=== PATIENT | female | born 1950 | race Caucasian/White ===

== ENCOUNTER → 2018-05-02 | Outpatient (CLI) | payer MEDICARE, BC | LOC: M.CT 10:55 | DX: K57.30 Diverticulosis of large intestine without perforation or abscess without bleeding (principal) ==

== ENCOUNTER 2018-07-03 15:30 | Emergency (ER) | payer MEDICARE, BC ==
[~2018-07-03] VITALS: Ht 177.8 cm; Wt 55.8 kg
[2018-07-03 15:42] VITALS: BP 130/72
[2018-07-03] MEDS ORDERED: AZASAN100 MG (15:49)
[2018-07-03] MEDS ORDERED: SYNTHROID125 MC1 PO (15:49)
[2018-07-03] MEDS ORDERED: AMLOD/BENAZEPRIL (15:50)
[2018-07-03] MEDS ORDERED: HYDROXYCHLOR (15:50)
[2018-07-03] MEDS ORDERED: RESTASIS1 EACH OPHTHALMIC (15:50)
[2018-07-03] MEDS ORDERED: PROBIOTIC1 EAC1 PO (15:53)
[2018-07-03] MEDS ORDERED: REFRESH CELLUVI1 APP OPHTHALMIC (15:53)
[2018-07-03] MEDS ORDERED: ASPIR 8181 MG PO (15:53)
[2018-07-03] MEDS ORDERED: VITAMIN B12 (15:54)
[2018-07-03] MEDS ORDERED: PREDNISONE 10 M10 MG PO (16:20)
[2018-07-03] MEDS ORDERED: CEFUROXIME250 MG PO (16:20)
== END 2018-07-03 16:26 | disposition home or self-care (01) ==
LOC: M.ERS 15:30
DX: J20.9 Acute bronchitis, unspecified (principal); J32.0 Chronic maxillary sinusitis; I10 Essential (primary) hypertension; K58.9 Irritable bowel syndrome, unspecified; M32.9 Systemic lupus erythematosus, unspecified; E03.9 Hypothyroidism, unspecified; Z88.2 Allergy status to sulfonamides; Z88.5 Allergy status to narcotic agent

== ENCOUNTER 2019-01-14 11:21 | Inpatient (IN) | payer MEDICARE, BC ==
[~2019-01-14] VITALS: Ht 177.8 cm; Wt 53.6 kg
--- NOTE | ~2019-01-14 | CON ---
[address] [address] CONSULTATION Name: MICKY GRANT Room: [address] IN .R.#: [id number] Admission: 01/14/19 Attend Phys: Cheng Lopez DO Discharge: Date of : 48 Report #: [id number] THIS REPORT FOR: //name// CC: Coleman Orellana DICTATED BY: Ana Lilia Andrade [facility] DATE OF SERVICE: 01/16/2019 Please note at the time of this dictation, the patient was seen and physically examined by myself. REASON FOR CONSULTATION: GI bleed. HISTORY OF PRESENT ILLNESS: This is a 69-year-old female, who presented to the Emergency Room with having bright red blood that she had noticed for a couple of days prior to her admission on Wednesday. She has not had any further bleeding because she has not had further bowel movement since she has been here. 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 She did undergo a colonoscopy recently in 2017 or 2016 that she had a polyp or tubular adenoma at that time. She is also complaining of some dysphagia at this time. She states it has been intermittent, but seems to be getting worse with solid foods. She denies any issues with any acid reflux that she is aware of at this time. She denies any NSAID use and does not take any blood thinners at this time. ALLERGIES: SULFA, MORPHINE, METRONIDAZOLE. MEDICATIONS: From home include Synthroid, Restasis, Refresh, aspirin, probiotic, Zoloft, azathioprine, ursodiol, vitamin D2, amlodipine, vitamin B12. PAST MEDICAL HISTORY: Hypertension, lupus, hypothyroidism. PAST SURGICAL HISTORY: She has got a stent in her femoral artery, carotid endarterectomy, she has had history of gastrointestinal bleed with a clip placed, hysterectomy, bladder lift and carotid endarterectomy on the left. FAMILY HISTORY: Mother, colon cancer. SOCIAL HISTORY: She is . Denies any alcohol, tobacco [place] [address] CONSULTATION Name: JUANITA,MICKY Smith Room: [address]#: [id number] Admission: 01/14/19 Attend Phys: Cheng Lopez DO Discharge: Date of : 48 Report #: [id number] REVIEW OF SYSTEMS: Twelve-point review of systems is essentially negative except for what is mentioned in the HPI. PHYSICAL EXAMINATION: VITAL SIGNS: Temperature 36.4, pulse 75, respirations 16, blood pressure 149/61. HEART: Regular rate and rhythm. LUNGS: Clear. ABDOMEN: Soft, positive bowel sounds in all 4 quadrants, with no masses or tenderness noted. LABORATORY DATA: Hemoglobin on admission was 11.6, she is down to 10.5; white count is 5; platelets 325. GFR is 122. CT of the abdomen and pelvis shows unremarkable CT with moderate stool noted in the colon and numerous diverticula noted throughout the colon as well, otherwise negative. IMPRESSION: 1. Gastrointestinal bleed. 2. Anemia. 3. Dysphagia. 4. History of gastrointestinal bleed and diverticulitis in the past. 5. Family history of colon cancer in mother. PLAN: 1. EGD and colonoscopy tomorrow with Dr. Fajardo. 2. Further recommendations to be made once the procedure has been performed. Thank you for allowing us to participate in this patient's care. Please do not hesitate to call with any questions in regard to this consult. By: [id number] Johnson MD /nt
--- NOTE | ~2019-01-14 | PROC ---
[address] [place] [address] PROCEDURE REPORT Name: MICKY GRANT Room: [address] IN .R.#: [id number] Admission: 01/14/19 Attend Phys: Cheng Lopez DO Discharge: Date of : 48 Report #: [id number] THIS REPORT FOR: //name// For GI report, please see the Provation report in Perceptive 7 content. By: [id number] Records Staff BERNARDA /AMMY
[~2019-01-14 11:21] MED LIST: AMLOD/BENAZEPRIL; ASPIR 8181 MG PO; AZASAN100 MG; CEFUROXIME250 MG PO; HYDROXYCHLOR PO; PREDNISONE 10 M10 MG PO; PROBIOTIC1 EAC1 PO; REFRESH CELLUVI1 APP OPHTHALMIC; RESTASIS1 EACH OPHTHALMIC; SYNTHROID125 MC1 PO; VITAMIN B12 IM
[2019-01-14 11:26] VITALS: BP 119/59
[2019-01-14] MEDS ORDERED: ACTIGALL300 MG PO (11:35)
[2019-01-14] MEDS ORDERED: ZOLOFT50 MG PO (11:37)
[2019-01-14] MEDS ORDERED: VIT D2 PO (11:37)
[2019-01-14 11:59] LABS: ABSOLUTE EOSINOPHILS 0.1 thou/uL (0.0-0.7); ABSOLUTE MONOCYTES 0.6 thou/uL (0.0-1.2); ABSOLUTE NEUTROPHILS 3.9 thou/uL (1.6-8.1); BASOPHILS 0.7 %; EOSINOPHILS 2.6 %; HEMOGLOBIN 11.6 gm/dL (12.0-15.0); LYMPHOCYTES 18.2 %; MCH 30.4 pg (26.0-34.0); MCV 89.4 fL (80.0-100.0); MONOCYTES 10.7 %; NUCLEATED RBCS 0 /100WBC; PLATELET COUNT* 361 thou/uL (150-400); POLYS 67.8 %; RBC 3.81 mil/uL (4.20-5.00); WBC 5.7 thou/uL (4.0-11.0)
[2019-01-14 12:07] LABS: APTT 27.5 Seconds (25.0-31.3); CALCIUM 9.1 mg/dL (8.5-10.1); CREATININE 0.6 mg/dL (0.6-1.3); POTASSIUM 4.7 mmol/L (3.5-5.1); PROTIME 10.1 Seconds (9.20-11.50)
[2019-01-14 12:12] LABS: ALBUMIN 3.6 g/dL (3.4-5.0); TOTAL BILIRUBIN 0.2 mg/dL (<0.1-1.0); TOTAL PROTEIN 7.4 g/dL (6.4-8.2)
[2019-01-14 13:13] LABS: URINE BILIRUBIN NEGATIVE (Negative); URINE BLOOD NEGATIVE (Negative); URINE CLARITY CLEAR; URINE COLOR YELLOW; URINE GLUCOSE-RANDOM NEGATIVE (Negative); URINE KETONES NEGATIVE (Negative); URINE LEUKOCYTES-REFLEX NEGATIVE (Negative); URINE NITRITE-REFLEX NEGATIVE (Negative); URINE PROTEIN NEGATIVE (Negative); URINE SPECIFIC GRAVITY <= 1.005 (1.005-1.030); URINE UROBILINOGEN 0.2 E.U./dl (0.2-1.0)
[2019-01-14] MEDS ORDERED: AMLODIPINE-BEN1 EAC2 PO (14:01)
[2019-01-14 14:45] VITALS: BP 117/80
--- NOTE | 2019-01-14 18:39 | NUR ---
VSS, ASSUMED CARE FROM ER, PT IS A&O4 AND UP AD ANDREW AND DENIES ANY PAIN, SHE IS TRACING SR ON THE MONITOR, PT GET ST WHEN UP WALKING, PT GAOL IS TO MEET WITH GI FOR BLOOD IN STOOL, WILL FOLLOW WITH PLAN OF CARE AND HOURLY ROUNDS
[2019-01-14 20:20] VITALS: BP 146/63
[2019-01-15 00:19] VITALS: BP 160/60
[2019-01-15 03:53] LABS: HEMATOCRIT 30.6 % (37.0-47.0); HEMOGLOBIN 10.4 gm/dL (12.0-15.0); MCH 30.3 pg (26.0-34.0); MCHC 33.9 g/dL (28.0-37.0); MCV 89.4 fL (80.0-100.0); RBC 3.42 mil/uL (4.20-5.00); WBC 3.6 thou/uL (4.0-11.0)
[2019-01-15 04:00] LABS: CALCIUM 8.6 mg/dL (8.5-10.1); CREATININE 0.4 mg/dL (0.6-1.3); POTASSIUM 4.2 mmol/L (3.5-5.1)
[2019-01-15 04:03] VITALS: BP 131/61
--- NOTE | 2019-01-15 05:32 | NUR ---
PT SLEPT MOST OF SHIFT. ASSESSMENT DOCUMENTED. MEDS GIVEN PER E-MAR. IV PATENT. FLUIDS INFUSING. NO REPORTS OF PAIN OR NAUSEA. PT TOLERATING CLEAR LIQUIDS TODAY. TELE MONITOR READING SR THIS SHIFT. WILL CONTINUE WITH PLAN OF CARE.
[2019-01-15 08:00] VITALS: BP 132/59
[2019-01-15 12:05] VITALS: BP 133/57
--- NOTE | 2019-01-15 12:22 | NUR ---
VSS, ASSUMED CARE IN THE AM, ASSESSMENT PERFORMED AND CHARTED, FALL PRECAUTIONS IN PLACE AND CALL LIGHT IN REACH, PT IS A&O4 AND ON RA, TRACING SR ON THE MONITOR BUT BECOMES TACHY WHEN UP MOVING, PT GOAL IS TO SIT UP IN CHAIR AND HAVE NO BLOOD IN STOOL, PT STTAES SHE HAS A HEADACH, PAIN MEDS GIVEN AND I WILL FOLLOW WITH PLAN OF CARE AND HOURLY ROUNDS,
[2019-01-15 16:27] VITALS: BP 133/47
[2019-01-15 20:15] VITALS: BP 151/76
[2019-01-16] VITALS: BP 133/64
[2019-01-16 04:00] VITALS: BP 149/61
[2019-01-16 05:02] LABS: HEMATOCRIT 31.3 % (37.0-47.0); HEMOGLOBIN 10.5 gm/dL (12.0-15.0); MCH 30.1 pg (26.0-34.0); MCHC 33.6 g/dL (28.0-37.0); MCV 89.7 fL (80.0-100.0); MPV 8.2 fl. (7.2-11.1); RBC 3.49 mil/uL (4.20-5.00); RDW-CV 13.6 % (10.5-14.5)
[2019-01-16 05:12] LABS: CALCIUM 9.1 mg/dL (8.5-10.1); CREATININE 0.5 mg/dL (0.6-1.3); POTASSIUM 4.2 mmol/L (3.5-5.1)
--- NOTE | 2019-01-16 06:54 | NUR ---
PT SLEPT MOST OF SHIFT. ASSESSMENT DOCUMENTED. MEDS GIVEN PER E-MAR. IV PATENT, FLUIDS INFUSING. WILL CONTINUE WITH PLAN OF CARE.
[2019-01-16 08:00] VITALS: BP 155/71
[2019-01-16 12:00] VITALS: BP 136/66
--- NOTE | 2019-01-16 12:49 | NUR ---
Nutrition: Pt admitted with GIB. Seen for low BMI. Wts are varied: usual wt is 123#, today's wt is 117# - please reweigh for accuracy. RX noted. Labs: alb 3.6. Tolerated CLD yday. NPO now for EGD/colon. No nutrition interventions needed today. GOALS: advance once clinically able, per GI. Reweigh pt. Hopeful for good po intake once able to eat again. May need oral supplement at that time. Mild risk for now. Will follow up for diet order, wt on 01/18/19.
--- NOTE | 2019-01-16 15:38 | NUR ---
Pt is A&O. Resides at home with her . Independent. Pt has a cane that she uses PRN. Hx of [facility]. No hx of SNF. Pt states that she is having a colonoscopy tomorrow, possible dc to home afterwards. No needs anticipated. Following.
[2019-01-16 16:00] VITALS: BP 116/77
--- NOTE | 2019-01-16 18:26 | NUR ---
SHAZIA RESTING IN BED. BOWEL PREP IN PROGRESS. PAITNET TOLERATING BOWEL PREP. CURRENTLY HAS BLOOD IN STOOL. JAMARI BONILLA COMPLETDFOR PATIENT SAFETY.
[2019-01-16 20:00] VITALS: BP 134/73
[2019-01-17] VITALS: BP 162/73
[2019-01-17 04:00] VITALS: BP 132/57
[2019-01-17 04:35] LABS: HEMATOCRIT 28.9 % (37.0-47.0); HEMOGLOBIN 9.8 gm/dL (12.0-15.0); MCV 88.2 fL (80.0-100.0); MPV 8.4 fl. (7.2-11.1); RBC 3.27 mil/uL (4.20-5.00); RDW-CV 13.9 % (10.5-14.5); WBC 4.4 thou/uL (4.0-11.0)
[2019-01-17 07:05] VITALS: BP 147/83
--- NOTE | 2019-01-17 11:05 | NUR ---
INITAL ASSESSMENT COMPLETED CHARTED. VSS. TRACING SR WITH BBB. PT DENIES ANY PAIN. NEW ORDERS RECEIVED FOR CLD. PROCEDURE TO BE RESCHEDULED FOR TOMORROW. PT ILYA ANT FURTHER NEEDS AT THIS TIME. HOURLY ROUNDING IN PLACE. CLWR.
[2019-01-17 12:07] VITALS: BP 148/75
[2019-01-17 15:52] VITALS: BP 139/72
[2019-01-17 20:00] VITALS: BP 158/80
[2019-01-18 00:03] VITALS: BP 152/79
[2019-01-18 04:00] VITALS: BP 127/57
[2019-01-18 05:39] LABS: ABSOLUTE BASOPHILS 0.1 thou/uL (0.0-0.2); ABSOLUTE EOSINOPHILS 0.1 thou/uL (0.0-0.7); ABSOLUTE LYMPHOCYTES 1.2 thou/uL (0.8-5.3); ABSOLUTE MONOCYTES 0.6 thou/uL (0.0-1.2); ABSOLUTE NEUTROPHILS 2.9 thou/uL (1.6-8.1); EOSINOPHILS 2.1 %; HEMATOCRIT 30.5 % (37.0-47.0); HEMOGLOBIN 10.3 gm/dL (12.0-15.0); LYMPHOCYTES 24.9 %; MCH 30.2 pg (26.0-34.0); MCHC 33.7 g/dL (28.0-37.0); MCV 89.6 fL (80.0-100.0); MONOCYTES 12.5 %; MPV 8.8 fl. (7.2-11.1); NUCLEATED RBCS 0 /100WBC; PLATELET COUNT* 331 thou/uL (150-400); POLYS 59.5 %; RBC 3.41 mil/uL (4.20-5.00); RDW-CV 13.9 % (10.5-14.5); WBC 4.9 thou/uL (4.0-11.0)
[2019-01-18 05:44] LABS: CALCIUM 8.9 mg/dL (8.5-10.1); CREATININE 0.4 mg/dL (0.6-1.3); MAGNESIUM 1.7 mg/dL (1.8-2.4); POTASSIUM 3.3 mmol/L (3.5-5.1)
--- NOTE | 2019-01-18 07:25 | NUR ---
PT COMPLIANT WITH BOWEL PREP. FIORICET GIVEN FOR ELLIS THIS AM. FREQ LIQUID STOOLS THROUGHOUT THE NIGHT. CLEARER THIS SHIFT THAN LAST NIGHT SHFT BOWEL PREP ATTEMPT. CALL LIGHT IN REACH. HOURLY ROUNDING FOR SAFETY.
[2019-01-18 08:00] VITALS: BP 143/70
[2019-01-18 10:00] VITALS: BP 143/70
--- NOTE | 2019-01-18 12:45 | NUR ---
Nutrition: Pt still not had scope yet. Looks like it will be tomorrow. RD will follow up again on diet order, tolerance, wt, labs, 01/20/19.
--- NOTE | 2019-01-18 16:49 | EKG ---
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
--- NOTE | 2019-01-18 18:40 | NUR ---
VSS, ASSUMED CARE IN THE AM, ASSESSMENT PERFORMED AND CHARTED, FALL PRECAUTIONS IN PLACE AND CALL LIGHT IN REACH, PT IS TRAING SR WITH 1DBLK ON THE MONITOR, RA, AND UP AD ANDREW, PT IS A&O4, SHE HAS COMPLETED COLEN TODAY IS AND DENIES ANY PAIN AT THIS TIME, HOURLY ROUNDS COMPLETED AND CHART CHECKED, PT SHOULD D/C MICHELLE
[2019-01-18 20:00] VITALS: BP 154/71
[2019-01-19] VITALS: BP 133/55
[2019-01-19 04:00] VITALS: BP 134/58
[2019-01-19 04:27] LABS: ABSOLUTE EOSINOPHILS 0.1 thou/uL (0.0-0.7); ABSOLUTE LYMPHOCYTES 0.7 thou/uL (0.8-5.3); ABSOLUTE MONOCYTES 0.6 thou/uL (0.0-1.2); ABSOLUTE NEUTROPHILS 3.3 thou/uL (1.6-8.1); BASOPHILS 0.8 %; EOSINOPHILS 1.9 %; HEMATOCRIT 29.5 % (37.0-47.0); LYMPHOCYTES 15.6 %; MCH 29.7 pg (26.0-34.0); MCHC 33.8 g/dL (28.0-37.0); MCV 88.1 fL (80.0-100.0); MONOCYTES 12.3 %; MPV 8.3 fl. (7.2-11.1); NUCLEATED RBCS 0 /100WBC; PLATELET COUNT* 294 thou/uL (150-400); POLYS 69.4 %; RBC 3.35 mil/uL (4.20-5.00); RDW-CV 13.8 % (10.5-14.5); WBC 4.8 thou/uL (4.0-11.0)
[2019-01-19 04:45] LABS: CALCIUM 8.6 mg/dL (8.5-10.1); CREATININE 0.3 mg/dL (0.6-1.3); POTASSIUM 3.5 mmol/L (3.5-5.1)
[2019-01-19 04:47] LABS: % SATURATION 8 % (20-39); IRON 23 ug/dL (50-175)
--- NOTE | 2019-01-19 07:10 | NUR ---
CHANGE OF SHIFT, BEDSIDE REPORT GIVEN PATIENT SEEN AT BEDSIDE, IN BED RESTING ASSUMED PATIENT CARE
[2019-01-19 08:00] VITALS: BP 141/58; BP 141/79
[2019-01-19 12:11] VITALS: BP 152/63
[2019-01-19 15:58] VITALS: BP 146/73
[2019-01-19 20:00] VITALS: BP 182/79
[2019-01-20 04:00] VITALS: BP 142/66
[2019-01-20 04:30] LABS: ABSOLUTE BASOPHILS 0.1 thou/uL (0.0-0.2); ABSOLUTE EOSINOPHILS 0.1 thou/uL (0.0-0.7); ABSOLUTE LYMPHOCYTES 0.7 thou/uL (0.8-5.3); ABSOLUTE MONOCYTES 0.5 thou/uL (0.0-1.2); BASOPHILS 1.2 %; EOSINOPHILS 2.5 %; HEMATOCRIT 30.3 % (37.0-47.0); HEMOGLOBIN 10.2 gm/dL (12.0-15.0); LYMPHOCYTES 15.5 %; MCH 29.6 pg (26.0-34.0); MCHC 33.5 g/dL (28.0-37.0); MCV 88.3 fL (80.0-100.0); MONOCYTES 12.2 %; MPV 8.2 fl. (7.2-11.1); NUCLEATED RBCS 0 /100WBC; PLATELET COUNT* 279 thou/uL (150-400); POLYS 68.6 %; RBC 3.44 mil/uL (4.20-5.00); RDW-CV 14.1 % (10.5-14.5); WBC 4.4 thou/uL (4.0-11.0)
[2019-01-20 04:43] LABS: CALCIUM 8.5 mg/dL (8.5-10.1); CREATININE 0.3 mg/dL (0.6-1.3); POTASSIUM 3.2 mmol/L (3.5-5.1)
--- NOTE | 2019-01-20 06:39 | NUR ---
ASSUMED PATIENT CARE AT 1900. PATIENT ALERT AND ORIENTED TIMES FOUR. HAS BEEN NPO SINCE 0000. NO COMPLAINTS OF PAIN OR DISCOMFORT NOTED. UP AD ANDREW. REMAINS NSR ON THE MONITOR. [employer] ARCHITECT AND HOURLY ROUNDING COMPLETED DOCUMENTED.
[2019-01-20 08:00] VITALS: BP 155/87
--- NOTE | 2019-01-20 10:25 | NUR ---
9882 ASSUMED CARE OF PATIENT. SEE DOCUMENTED ASSESSMENT. PT IS NPO FOR BARIUM ENEMA. MEDICATED FOR HEADACHE
[2019-01-20 11:44] VITALS: BP 168/86
[2019-01-20] MEDS ORDERED: PROTONIX40 M1 PO (12:25)
[2019-01-20] MEDS ORDERED: IRON325 PO (12:30)
--- NOTE | 2019-01-20 13:07 | NUR ---
PLAN IS FOR PATIENT TO BE DISCHARGED. DIET RESUMED
[2019-01-20 13:35] VITALS: BP 168/86
--- NOTE | 2019-01-20 16:04 | NUR ---
1530 IV REMOVED. TELE PACK REMOVED. DISCHARGE EDUCATION COMPLETED. DISCHARGED HOME WITH SPOUSE
== END 2019-01-20 15:30 | disposition home or self-care (01) | DRG 392 ==
LOC: M.ERS 11:21 → M.TBA-ER 13:36 → M.2W 13:36
PROVIDERS: Family Medicine; Nurse Practitioner Family; ADMIT Internal Medicine
PROC: 0D758ZZ Dilation of Esophagus, Via Natural or Artificial Opening Endoscopic (ICD-10-PCS; principal; 2019-01-18)
PROC: 0DJD8ZZ Inspection of Lower Intestinal Tract, Via Natural or Artificial Opening Endoscopic (ICD-10-PCS; principal; 2019-01-18)
DX: K57.30 Diverticulosis of large intestine without perforation or abscess without bleeding (principal); D62 Acute posthemorrhagic anemia; I10 Essential (primary) hypertension; E03.9 Hypothyroidism, unspecified; R13.10 Dysphagia, unspecified; F32.9 Major depressive disorder, single episode, unspecified; E87.6 Hypokalemia; E83.42 Hypomagnesemia; K44.9 Diaphragmatic hernia without obstruction or gangrene; K64.8 Other hemorrhoids; K63.5 Polyp of colon; Z90.49 Acquired absence of other specified parts of digestive tract; Z95.820 Peripheral vascular angioplasty status with implants and grafts; Z90.710 Acquired absence of both cervix and uterus; Z88.6 Allergy status to analgesic agent; Z88.2 Allergy status to sulfonamides; Z83.79 Family history of other diseases of the digestive system; Z83.3 Family history of diabetes mellitus

== ENCOUNTER 2019-03-08 14:31 | Emergency (ER) | payer MEDICARE, BC ==
[~2019-03-08] VITALS: Ht 152.4 cm; Wt 59.4 kg
[~2019-03-08 14:31] MED LIST changes: +ACTIGALL300 MG PO; +AMLODIPINE-BEN1 EAC2 PO; +IRON325 PO; +PROTONIX40 M1 PO; +VIT D2 PO; +ZOLOFT50 MG PO
[2019-03-08] MEDS ORDERED: ACETAMINOPHEN-1 EAC1 PO (16:13)
[2019-03-08 16:36] VITALS: BP 167/69
== END 2019-03-08 16:37 | disposition home or self-care (01) ==
LOC: M.ERS 14:31
DX: S92.311A Displaced fracture of first metatarsal bone, right foot, initial encounter for closed fracture (principal); S16.1XXA Strain of muscle, fascia and tendon at neck level, initial encounter; M25.512 Pain in left shoulder; M32.9 Systemic lupus erythematosus, unspecified; I10 Essential (primary) hypertension; E03.9 Hypothyroidism, unspecified; Z90.49 Acquired absence of other specified parts of digestive tract; Z90.710 Acquired absence of both cervix and uterus; Z95.2 Presence of prosthetic heart valve; Z88.5 Allergy status to narcotic agent; Z88.2 Allergy status to sulfonamides; Z88.1 Allergy status to other antibiotic agents; W18.39XA Other fall on same level, initial encounter; Y92.89 Other specified places as the place of occurrence of the external cause; Y93.89 Activity, other specified; Y99.8 Other external cause status

== ENCOUNTER 2019-06-29 10:53 | Emergency (ER) | payer MEDICARE, BC ==
[~2019-06-29] VITALS: Ht 177.8 cm; Wt 58.1 kg
[~2019-06-29 10:53] MED LIST changes: +ACETAMINOPHEN-1 EAC1 PO
[2019-06-29 12:24] VITALS: BP 138/65
== END 2019-06-29 12:25 | disposition home or self-care (01) ==
LOC: M.ERS 10:53
DX: S93.692A Other sprain of left foot, initial encounter (principal); I10 Essential (primary) hypertension; A18.4 Tuberculosis of skin and subcutaneous tissue; E03.9 Hypothyroidism, unspecified; Z90.710 Acquired absence of both cervix and uterus; Z88.2 Allergy status to sulfonamides; Z88.5 Allergy status to narcotic agent; Z88.8 Allergy status to other drugs, medicaments and biological substances; W18.39XA Other fall on same level, initial encounter; Y93.89 Activity, other specified; Y92.89 Other specified places as the place of occurrence of the external cause; Y99.8 Other external cause status

== ENCOUNTER → 2019-11-21 | Outpatient (CLI) | payer MEDICARE, BC | LOC: M.RAD 11:00 | DX: Z12.31 Encounter for screening mammogram for malignant neoplasm of breast (principal) ==

== ENCOUNTER 2020-05-14 15:15 | Emergency (ER) | payer MEDICARE, BC ==
[~2020-05-14] VITALS: Ht 170.2 cm; Wt 68.0 kg
[2020-05-14] MEDS ORDERED: PROTONIX 20 MG20 MG PO (15:33)
[2020-05-14] MEDS ORDERED: VITAMIN D210 MCG PO (15:33)
[2020-05-14] MEDS ORDERED: CELLCEPT500 M1 PO (15:34)
[2020-05-14] MEDS ORDERED: NORCO 5-325 TA1 EAC2 PO (16:49)
[2020-05-14] MEDS ORDERED: IBUPROFEN 600600 M1 PO (16:49)
[2020-05-14 17:04] VITALS: BP 140/69
== END 2020-05-14 17:05 | disposition home or self-care (01) ==
LOC: M.ERS 15:15
DX: S92.344A Nondisplaced fracture of fourth metatarsal bone, right foot, initial encounter for closed fracture (principal); S93.692A Other sprain of left foot, initial encounter; I10 Essential (primary) hypertension; M32.8 Other forms of systemic lupus erythematosus; E03.9 Hypothyroidism, unspecified; Z90.710 Acquired absence of both cervix and uterus; Z88.5 Allergy status to narcotic agent; Z88.2 Allergy status to sulfonamides; Z88.8 Allergy status to other drugs, medicaments and biological substances; W01.0XXA Fall on same level from slipping, tripping and stumbling without subsequent striking against object, initial encounter; Y93.89 Activity, other specified; Y92.89 Other specified places as the place of occurrence of the external cause; Y99.8 Other external cause status

== ENCOUNTER 2020-05-21 12:39 | Emergency (ER) | payer MEDICARE, BC ==
[~2020-05-21] VITALS: Ht 177.8 cm; Wt 63.5 kg
[~2020-05-21 12:39] MED LIST changes: +CELLCEPT500 M1 PO; +IBUPROFEN 600600 M1 PO; +NORCO 5-325 TA1 EAC2 PO; +PROTONIX 20 MG20 MG PO; +VITAMIN D210 MCG PO
[2020-05-21] MEDS ORDERED: PHENERGAN 25 MG25 M1 PO (13:06)
[2020-05-21] MEDS ORDERED: IBUPROFEN 800800 M1 PO (13:06)
[2020-05-21] MEDS ORDERED: NORCO 5-325 TA1 EAC2 PO (13:06)
[2020-05-21 13:26] LABS: ABSOLUTE LYMPHOCYTES 1.1 thou/uL (0.8-5.3); ABSOLUTE MONOCYTES 0.5 thou/uL (0.0-1.2); ABSOLUTE NEUTROPHILS 3.5 thou/uL (1.6-8.1); BASOPHILS 0.9 %; EOSINOPHILS 0.6 %; HEMATOCRIT 37.8 % (37.0-47.0); HEMOGLOBIN 12.7 gm/dL (12.0-15.0); LYMPHOCYTES 21.1 %; MCH 30.6 pg (26.0-34.0); MCHC 33.5 g/dL (28.0-37.0); MCV 91.4 fL (80.0-100.0); MONOCYTES 8.9 %; NUCLEATED RBCS 0 /100WBC; PLATELET COUNT* 314 thou/uL (150-400); POLYS 68.5 %; RBC 4.14 mil/uL (4.20-5.00); RDW-CV 13.1 % (10.5-14.5); WBC 5.1 thou/uL (4.0-11.0)
[2020-05-21 13:33] LABS: CALCIUM 9.7 mg/dL (8.5-10.1); CREATININE 0.5 mg/dL (0.6-1.3)
[2020-05-21 13:38] LABS: ALBUMIN 4.1 g/dL (3.4-5.0); TOTAL BILIRUBIN 0.5 mg/dL (<0.1-1.0); TOTAL PROTEIN 8.3 g/dL (6.4-8.2)
[2020-05-21 14:30] VITALS: BP 149/77
== END 2020-05-21 14:30 | disposition home or self-care (01) ==
LOC: M.ERS 12:39
PROVIDERS: Family Medicine
DX: R51.9 Headache, unspecified (principal); U07.1 COVID-19; I10 Essential (primary) hypertension; M32.9 Systemic lupus erythematosus, unspecified; E03.9 Hypothyroidism, unspecified; Z90.710 Acquired absence of both cervix and uterus; Z88.5 Allergy status to narcotic agent; Z88.2 Allergy status to sulfonamides; Z88.8 Allergy status to other drugs, medicaments and biological substances

== ENCOUNTER 2021-02-24 15:28 | Emergency (ER) | payer MEDICARE, BC ==
[~2021-02-24] VITALS: Ht 162.6 cm; Wt 63.5 kg
[~2021-02-24 15:28] MED LIST changes: +IBUPROFEN 800800 M1 PO; +PHENERGAN 25 MG25 M1 PO
[2021-02-24 17:44] LABS: ABSOLUTE LYMPHOCYTES 0.7 thou/uL (0.8-5.3); ABSOLUTE MONOCYTES 0.8 thou/uL (0.0-1.2); BASOPHILS 0.5 %; EOSINOPHILS 0.3 %; HEMATOCRIT 35.4 % (37.0-47.0); HEMOGLOBIN 11.7 gm/dL (12.0-15.0); LYMPHOCYTES 8.6 %; MCH 28.9 pg (26.0-34.0); MCV 87.7 fL (80.0-100.0); MONOCYTES 8.9 %; MPV 8.1 fl. (7.2-11.1); NUCLEATED RBCS 0 /100WBC; PLATELET COUNT* 350 thou/uL (150-400); POLYS 81.7 %; RBC 4.04 mil/uL (4.20-5.00); RDW-CV 13.1 % (10.5-14.5); WBC 8.6 thou/uL (4.0-11.0)
[2021-02-24 17:45] LABS: CREATININE 0.6 mg/dL (0.6-1.3)
[2021-02-24 17:49] LABS: TOTAL BILIRUBIN 0.3 mg/dL (<0.1-1.0); TOTAL PROTEIN 7.8 g/dL (6.4-8.2)
[2021-02-24 18:32] VITALS: BP 168/84
--- NOTE | 2021-02-25 11:24 | EKG ---
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: : 1950 Requested By: Alex Celeste Order Number: [id number] MD: Mikhail Syed Measurements Intervals [place] Rate: 82 P: 59 NE: 180 QRS: -49 QRSD: 124 T: 84 QT: 435 QTc: 508 Interpretive Statements Sinus rhythm Left bundle branch block Compared to ECG 01/18/2019 11:12:14 No significant changes Electronically Signed On 02-25-2021 11:24:13 CDT by Mikhail Syed [email or web address] <ELECTRONICALLY SIGNED> By: Mikhail Seyd MD, [facility] 02/25/21 1124 1752 1752 Mikhail Syed MD, [facility] /EPI
== END 2021-02-24 18:33 | disposition home or self-care (01) ==
LOC: M.ERS 15:28
PROVIDERS: Family Medicine
DX: R53.1 Weakness (principal); Z20.822 Contact with and (suspected) exposure to COVID-19; I10 Essential (primary) hypertension; E03.9 Hypothyroidism, unspecified; Z90.710 Acquired absence of both cervix and uterus; Z88.1 Allergy status to other antibiotic agents; Z88.5 Allergy status to narcotic agent; Z88.2 Allergy status to sulfonamides; Z79.899 Other long term (current) drug therapy

== ENCOUNTER 2021-03-11 19:09 | Emergency (ER) | payer MEDICARE, BC ==
[~2021-03-11] VITALS: Ht 175.3 cm; Wt 61.2 kg
[2021-03-11 19:56] LABS: ABSOLUTE BASOPHILS 0.1 thou/uL (0.0-0.2); ABSOLUTE EOSINOPHILS 0.1 thou/uL (0.0-0.7); ABSOLUTE LYMPHOCYTES 1.5 thou/uL (0.8-5.3); ABSOLUTE MONOCYTES 0.6 thou/uL (0.0-1.2); ABSOLUTE NEUTROPHILS 2.8 thou/uL (1.6-8.1); EOSINOPHILS 1.1 %; HEMATOCRIT 35.5 % (37.0-47.0); HEMOGLOBIN 11.7 gm/dL (12.0-15.0); LYMPHOCYTES 29.9 %; MCH 29.5 pg (26.0-34.0); MCHC 32.9 g/dL (28.0-37.0); MCV 89.6 fL (80.0-100.0); NUCLEATED RBCS 0 /100WBC; PLATELET COUNT* 270 thou/uL (150-400); RBC 3.96 mil/uL (4.20-5.00); RDW-CV 14.6 % (10.5-14.5)
[2021-03-11 20:02] LABS: CALCIUM 8.7 mg/dL (8.5-10.1); CREATININE 0.5 mg/dL (0.6-1.3); POTASSIUM 4.1 mmol/L (3.5-5.1)
[2021-03-11 20:12] LABS: ALBUMIN 4.1 g/dL (3.4-5.0); MAGNESIUM 1.7 mg/dL (1.8-2.4); TOTAL BILIRUBIN 0.4 mg/dL (<0.1-1.0); TOTAL PROTEIN 7.8 g/dL (6.4-8.2)
[2021-03-11 20:14] LABS: URINE BILIRUBIN NEGATIVE (Negative); URINE BLOOD NEGATIVE (Negative); URINE CLARITY CLEAR; URINE COLOR YELLOW; URINE GLUCOSE-RANDOM NEGATIVE (Negative); URINE KETONES NEGATIVE (Negative); URINE LEUKOCYTES-REFLEX 1+ (Negative); URINE NITRITE-REFLEX NEGATIVE (Negative); URINE PROTEIN TRACE (Negative); URINE UROBILINOGEN 0.2 E.U./dl (0.2-1.0)
[2021-03-11 20:21] LABS: CASTS None Seen /LPF (None Seen); MUCUS None Seen strn/LPF (None Seen); SQUAMOUS 4-10 Moderate /LPF (0-3)
[2021-03-11 20:22] LABS: AMP/METHAMP Negative (Negative); BACTERIA-REFLEX None Seen /HPF (None Seen); BARBITURATES Negative (Negative); BENZODIAZEPINES Negative (Negative); COCAINE Negative (Negative); CRYSTALS None Seen /LPF (None Seen); METHADONE Negative (Negative); OPIATES Negative (Negative); PCP Negative (Negative); THC Negative (Negative); URINE RBC 0-2 Rare /HPF (0-2); URINE WBC-REFLEX 6-15 Few /HPF (0-5)
[2021-03-11] MEDS ORDERED: HYDROCODON-ACE1 EAC8 PO (21:52)
[2021-03-11 23:15] VITALS: BP 145/63
--- NOTE | 2021-03-12 09:42 | EKG ---
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: [place] : 1950 Requested By: Monalisa Garcia Order Number: [id number] MD: Mikhail Syed Measurements Intervals [place] Rate: 83 P: 63 [place]: 182 QRS: -40 QRSD: 125 T: 98 QT: 419 QTc: 493 Interpretive Statements Sinus rhythm Probable left atrial enlargement Left bundle branch block Compared to ECG 02/24/2021 17:52:01 No significant changes Electronically Signed On 03-12-2021 9:42:34 CDT by Mikhail Syed [email or web address] <ELECTRONICALLY SIGNED> By: Mikhail Syed MD, [facility] 03/12/21 0942 14 14 Mikhail Syed MD, [facility] /EPI
== END 2021-03-11 23:15 | disposition home or self-care (01) ==
LOC: M.ERS 19:09
PROVIDERS: Emergency Medicine
DX: I10 Essential (primary) hypertension (principal); R51.9 Headache, unspecified; E03.9 Hypothyroidism, unspecified; Z90.49 Acquired absence of other specified parts of digestive tract; Z90.710 Acquired absence of both cervix and uterus; Z79.899 Other long term (current) drug therapy; Z88.2 Allergy status to sulfonamides; Z88.5 Allergy status to narcotic agent; Z88.1 Allergy status to other antibiotic agents